=== PATIENT | male | born 1990 | race Caucasian/White ===

== ENCOUNTER 2021-08-03 10:22 | Emergency (ER) | payer OTHER, SELFPAY ==
--- NOTE | ~2021-08-03 | XR_ITS ---
EXAMINATION: XR wrist LT min 3V DATE: 08/03/2021 11:00 INDICATION: Left wrist pain TECHNIQUE: Posteroanterior, ulnar deviation, oblique, and lateral views of the left wrist were obtain ed. COMPARISON: None available FINDINGS: There is no fracture, dislocation, or subluxation. The bones, soft tissues, and joint space s are normal. IMPRESSION: 1. No acute osseous abnormality. Reviewed, dictated and finalized at location A.
[2021-08-03 10:30] VITALS: BP 115/74; PULSE 74; RESP 16; TEMP 37.1; O2SAT 100
--- NOTE | 2021-08-03 11:12 | ED.GENADULT ---
HPI - General Adult General Chief complaint: Extremity Injury, Upper Stated complaint: left wrist injury Source: patient Mode of arrival: ambulatory Limitations: no limitations History of Present Illness HPI narrative: Patient presents for evaluation of left wrist pain. He indicates on 07/29/2021 through 07/29/2021 he was seen at [facility] for mental breakdown . He states emergency department personnel were performing an EKG. He attempted to pull the leads off and the emergency department provider grabbed his wrist. The provider twisted his left wrist. He has noted pain in the affected area since that time. He rates his pain 10 out of 10 in severity, without descriptive quality. No radicular component. No paresthesias. He is ambidextrous. He has been taking ibuprofen for symptoms. He was transferred from [facility] to [facility] where he was admitted. He currently denies any SI, HI, AH, VH. Related Data Home Medications Medication Instructions Recorded Confirmed albuterol sulfate 90 mcg/actuation 1 - 2 inh inhalation Q4H PRN sob 08/03/21 08/03/21 aerosol inhaler (Ventolin HFA) budesonide-formoterol HFA 160 2 inh inhalation BID 08/03/21 08/03/21 mcg-4.5 mcg/actuation aerosol inhaler (Symbicort) buspirone 10 mg tablet 1 tablet PO TID 08/03/21 08/03/21 meloxicam 15 mg tablet 1 tablet PO DAILY 08/03/21 08/03/21 Allergies Allergy/AdvReac Type Severity Reaction Status Date / Time caffeine Allergy Unknown Verified 08/03/21 10:41 Review of Systems Review of Systems: CONSTITUTIONAL: Denies fever, chills, or sweats. EYES: Denies visual changes, redness, or discharge. ENT: Denies rhinorrhea, congestion, sore throat, or otalgia. CARDIOVASCULAR: Denies chest pain, palpitations, or edema. RESPIRATORY: Denies cough or dyspnea. GASTROINTESTINAL: Denies abdominal pain, nausea, vomiting, or diarrhea. GENITOURINARY: Denies dysuria or hematuria. SKIN: Denies rash or itching. MUSCULOSKELETAL: Reports left wrist pain. Denies back pain, or myalgia. NEUROLOGIC: Denies headache, numbness, dizziness, or weakness. PSYCHIATRIC: Denies anxiety or depression. PMFSH Past Medical History Medical History (Updated 08/03/21 @ 11:35 by Pa Hernandez, [facility], ) Anxiety Depression Depression Surgical History Surgical History (Updated 08/03/21 @ 11:16 by Pa Hernandez, [facility], ) History of appendectomy Family History Family History Mother Family history non-contributory Social History Social History Smoking packs per day: 1 Smoking cigarettes per day: 20.0 Smoking status: Current every day smoker Living arrangements: with family Additional living arrangements comments: Lives with Gender identity (if verbalized by the patient): Male Sexual Orientation (if Verbalized by the Patient): Lesbian, Rosario, or Homosexual Spiritual care concerns: No Exam Narrative: GENERAL: Well-appearing, well-nourished, and in no acute distress. HEAD: Normocephalic, atraumatic. EYES: PERRLA and EOMI. ENT: Nares clear, no rhinorrhea or epistaxis. Mucous membranes moist. Oropharynx without tonsillar hypertrophy exudate or other lesions. Bilateral TMs pearly seth nonbulging NECK: Supple. No adenopathy or masses. No carotid bruits or JVD CHEST: Clear to auscultation. No respiratory distress. No wheezes rales or rhonchi HEART: Regular rate and rhythm. No murmur heard. Normal peripheral pulses. ABDOMEN: Soft, nontender, nondistended, normal active bowel sounds. EXTREMITIES: Full range of motion of the left wrist. No crepitus or deformity. No swelling. There are some tenderness in the distal aspect of the left forearm. 5 out of 5 handgrip strength bilaterally. SKIN: There is light ecchymosis noted to distal aspect of left forearm. Warm, dry, no rash. N
== END 2021-08-03 11:40 | disposition home or self-care (01) ==
PROVIDERS: Emergency Provider Nurse Practitioner; PCP Internal Medicine
DX: S60.212A Contusion of left wrist, initial encounter (principal); Y04.8XXA Assault by other bodily force, initial encounter; F41.9 Anxiety disorder, unspecified; F32.A Depression, unspecified; F17.210 Nicotine dependence, cigarettes, uncomplicated
CPT/HCPCS: 73110; 99213; G0463

== ENCOUNTER 2021-09-09 16:55 | Emergency (ER) | payer OTHER, SELFPAY | END 2021-09-09 16:56 | disposition left against medical advice (07) | PROVIDERS: Emergency Provider Nurse Practitioner; PCP Internal Medicine | DX: Z53.21 Procedure and treatment not carried out due to patient leaving prior to being seen by health care provider (principal) | CPT/HCPCS: 99199 ==